=== PATIENT | female | born 1950 | race Asian ===

== ENCOUNTER 2018-09-14 10:33 | Emergency (ER) | payer OTHER ==
[~2018-09-14] VITALS: Wt 70.0 kg
[2018-09-14] MEDS ORDERED: LIDOCAINE 1% (MPF) 5 ML VIAL INJ ONE (11:30)
[2018-09-14 12:14] VITALS: BP 132/74; PULSE 71; RESP 18
--- NOTE | 2018-09-14 13:07 | ERD ---
ER Documentation Chief Complaint Chief Complaint left hand small lac HPI 68-year-old female presenting with a small laceration to her left hand. Patient was cutting an apple when the knife slipped. She is right-hand dominant. She does not recall her last tetanus shot however does not want a tetanus shot because she had an adverse reaction to the shingles vaccination and she is concerned about an additional adverse reaction to the tetanus vaccination. Patient denies any numbness or tingling. Denies other medical problems. NKDA. Surgical history denies. Social history denies ROS All systems reviewed and are negative except as per history of present illness. Allergies Allergies: Coded Allergies: Penicillins (Verified Allergy, Intermediate, RASHES, 09/14/18) PMhx/Soc Medical and Surgical Hx: pt denies Medical Hx History of Surgery: Yes (ABD SX) Hx Alcohol Use: No Hx Substance Use: No Hx Tobacco Use: No Smoking Status: Never smoker FmHx Family History: No diabetes, No coronary disease, No other Physical Exam Vitals Vital Signs Date Temp Pulse Resp B/P (MAP) Pulse Ox O2 O2 Flow FiO2 Time Delivery Rate 09/14/18 98.1 71 18 132/74 99 Room Air 12:14 (93) 09/14/18 98.1 80 18 150/80 99 10:38 (103) Physical Exam GENERAL: The patient is well-appearing, well-nourished, in no acute distress CHEST: Clear to auscultation bilaterally. There are no rales, wheezes or rhonchi. HEART: Regular rate and rhythm. No murmurs, clicks, rubs or gallops. EXTREMITIES: Equal pulses bilaterally. There is no peripheral clubbing, cyanosis or edema. No focal swelling or erythema. Full range of motion. Grossly neurovascularly intact. NEUROLOGIC: Alert and oriented. Motor strength in all 4 extremities with 5 out of 5 strength. Sensation grossly intact. SKIN: Patient noted over the thenar muscle of the left palm. Mild active bleeding. Results 24 hrs Current Medications Medications Dose Sig/Rupert Start Time Status Last (Trade) Ordered Route PRN Stop Time Admin Dose Reason Admin Lidocaine 5 ml ONCE ONCE 09/14/18 DC (Xylocaine INJ 11:30 09/14/18 1% (Mpf)) 11:31 Procedures/MDM Laceration Repair by me: Anesthesia: 1% lidocaine locally Location: Left Palm Tendon/Joint/Nerves: No injury Foreign body: None detected after copious irrigation and exploration Technique: 3 4.0 N Simple Interrupted Sutures Complexity: No subcutaneous sutures/mucosal repair/edge excision Post Closure Length: 1 cm Patient's bleeding was easily controlled in the department and there is no indication of anemia. No evidence of compartment syndrome, neurologic injury, vascular injury, open joint, tendon laceration, or foreign body. Patient is appropriate for outpatient follow up. 48 hour wound check. Scar minimization instructions given. MDM: 7-year-old female presenting with a laceration to her left hand. Patient had sutures placed in the ER. I have low suspicion for tendon or ligament rupture as patient has normal range of motion of the7 digits. Have low suspicion for bony injury. I have low suspicion for neurovascular deficit. Patient is discharged with strict return precautions and told to follow-up with primary care 2 days for close evaluation. Patient is told if symptoms change or worsen to return immediately to the ER. All questions answered at discharge Departure Diagnosis: Primary Impression: Laceration Condition: Stable Patient Instructions: Laceration, Hand Referrals: [facility] YOU HAVE RECEIVED A MEDICAL SCREENING EXAM AND THE RESULTS INDICATE THAT YOU DO NOT HAVE A CONDITION THAT REQUIRES URGENT TREATMENT IN THE EMERGENCY DEPARTMENT. FURTHER EVALUATION AND TREATMENT OF YOUR CONDITION CAN WAIT UNTIL YOU ARE SEEN IN YOUR DOCTORS OFFICE WITHIN THE NEXT 1-2 DAYS. IT IS YOUR RESPONSIBILITY TO MAKE AN APPOINTMENT FOR FOLOW-UP CARE. IF YOU HAVE A PRIMARY DOCTOR --you should call your primary doctor and schedule an appointment IF YOU DO NOT HAVE A PRIMARY DOCTOR YOU CAN CALL OUR PHYSICIAN REFERRAL HOTLINE AT IF YOU CAN NOT AFFORD TO SEE A PHYSICIAN YOU CAN CHOSE FROM THE FOLLOWING [facility] [address] [facility]. [facility] [address] [facility]. [facility] [address] [facility] [facility] [address] [facility]. [facility] [address] [facility]. [facility]. [address] Additional Instructions: FOLLOW UP WITH YOUR PRIMARY CARE PHYSICIAN TOMORROW.Return to this facility if you are not improving as expected. DAMIEN LYNNE PA-C Sep 14, 2018 13:04
== END 2018-09-14 12:17 | disposition home or self-care (01) ==
LOC: FTE 10:33
DX: S61.412A Laceration without foreign body of left hand, initial encounter (principal); W26.0XXA Contact with knife, initial encounter; Y92.9 Unspecified place or not applicable